=== PATIENT | male | born 1985 | race Caucasian/White ===

== ENCOUNTER 2017-12-19 18:22 | Emergency (ER) | payer BC ==
[~2017-12-19] VITALS: Ht 170.2 cm; Wt 67.0 kg
[2017-12-19 20:31] VITALS: BP 124/74
== END 2017-12-19 20:33 | disposition home or self-care (01) ==
LOC: ED 20:25
DX: M94.0 Chondrocostal junction syndrome [Tietze] (principal)
CPT/HCPCS: 71046; 93005; 99284